=== PATIENT | male | born 1965 | race Caucasian/White ===

== ENCOUNTER 2024-05-18 09:13 | Emergency (ER) | payer BC, MEDICAID ==
[2024-05-18] MEDS ORDERED: Sodium Chloride 0.9% 10 ML Syringe FLUSH PRN (09:26)
[2024-05-18] MEDS: Nitroglycerin 0.4 MG Tab.SL SL ONE (09:35)
[2024-05-18 09:45] LABS: BASOPHILS PERCENT AUTO 0.2 % (0.0-1.0); HEMATOCRIT 44.2 % (42.0-52.0); HEMOGLOBIN 14.8 gm/dl (14.0-18.0); IMMATURE GRAN ABSOLUTE AUTO 0.03 K/mm3 (0.00-0.05); IMMATURE GRAN PERCENT AUTO 0.3 % (0.0-0.4); LYMPHOCYTES ABSOLUTE AUTO 1.1 K/mm3 (1.0-4.8); LYMPHOCYTES PERCENT AUTO 10.9 % (24.0-44.0); MEAN CORPUSCULAR HEMOGLOBIN 30.1 pg (28.0-32.0); MEAN CORPUSCULAR HGB CONC 33.5 g/dl (32.0-36.0); MONOCYTES ABSOLUTE AUTO 1.3 K/mm3 (0.0-0.8); MONOCYTES PERCENT AUTO 13.4 % (0.0-8.0); NEUTROPHILS ABSOLUTE AUTO 7.4 K/mm3 (1.8-7.7); NEUTROPHILS PERCENT AUTO 75.2 % (41.0-71.0); PLATELET COUNT,PLT 206 K/mm3 (150-400); RED BLOOD CELL COUNT 4.91 M/mm3 (4.52-5.90); WHITE BLOOD CELL COUNT,WBC 9.87 K/mm3 (3.9-11.3)
[2024-05-18] MEDS: Pantoprazole 40 MG Vial IVPUSH ONE (09:51)
[2024-05-18 10:04] LABS: A/G RATIO 0.9 (1-2); ALBUMIN 3.2 g/dl (3.4-5.0); ANION GAP 14.2 (5-15); BILIRUBIN TOTAL 0.4 mg/dL (0.2-1.0); CALCIUM 8.5 mg/dL (8.5-10.1); EST CRCL DRUG DOSING (CG) 78.43 mL/min; MAGNESIUM 1.6 mg/dL (1.8-2.4); POTASSIUM,K 4.2 mEq/L (3.5-5.1); PROTEIN TOTAL,TP 6.9 g/dl (6.4-8.2)
[2024-05-18] MEDS ORDERED: Sodium Chloride 0.9% 100 ML IV SCH (10:30)
[2024-05-18] MEDS: Iopamidol 755 Mg/ML 100 ML Bottle IVPUSH ONE (10:41)
[2024-05-18] MEDS: HYDROmorphone 0.5 MG/0.5 ML Syringe IVPUSH ONE (11:13)
[2024-05-18] MEDS: Ketorolac 30 MG/ML SDV IVPUSH ONE (13:27)
== END 2024-05-18 14:08 | disposition home or self-care (01) ==
LOC: JD.ED 09:13
DX: R09.1 Pleurisy (principal); F17.210 Nicotine dependence, cigarettes, uncomplicated
CPT/HCPCS: 36415; 71045; 71275; 80053; 83735; 84484; 85025; 85379; 93005; 96374; 96375; 99285; A9270; J1885; J2470; Q9967

== ENCOUNTER 2024-08-16 19:22 | Emergency (ER) | payer MEDICAID ==
[2024-08-16 20:11] LABS: BASOPHILS ABSOLUTE AUTO 0.1 K/mm3 (0.0-0.2); BASOPHILS PERCENT AUTO 0.7 % (0.0-1.0); EOSINOPHILS ABSOLUTE AUTO 0.1 K/mm3 (0.0-0.4); EOSINOPHILS PERCENT AUTO 1.2 % (0.0-6.0); HEMATOCRIT 47.1 % (42.0-52.0); HEMOGLOBIN 14.9 gm/dl (14.0-18.0); IMMATURE GRAN ABSOLUTE AUTO 0.02 K/mm3 (0.00-0.05); IMMATURE GRAN PERCENT AUTO 0.2 % (0.0-0.4); LYMPHOCYTES ABSOLUTE AUTO 0.8 K/mm3 (1.0-4.8); LYMPHOCYTES PERCENT AUTO 8.8 % (24.0-44.0); MEAN CORPUSCULAR HEMOGLOBIN 29.6 pg (28.0-32.0); MEAN CORPUSCULAR HGB CONC 31.6 g/dl (32.0-36.0); MEAN CORPUSCULAR VOLUME 93.5 fl (83.0-99.0); MEAN PLATELET VOLUME 9.2 fl (9.4-12.4); MONOCYTES ABSOLUTE AUTO 0.9 K/mm3 (0.0-0.8); NEUTROPHILS ABSOLUTE AUTO 7.2 K/mm3 (1.8-7.7); NEUTROPHILS PERCENT AUTO 79.1 % (41.0-71.0); PLATELET COUNT,PLT 281 K/mm3 (150-400); RED BLOOD CELL COUNT 5.04 M/mm3 (4.52-5.90); WHITE BLOOD CELL COUNT,WBC 9.06 K/mm3 (3.9-11.3)
[2024-08-16] MEDS: Lidocaine 4% Patch TOP STA (20:15)
[2024-08-16] MEDS: Sodium Chloride 0.9% 1,000 ML IV ONE (20:15)
[2024-08-16 20:16] LABS: INR 1.03; PROTHROMBIN TIME 10.9 SECONDS (9.7-12.0)
[2024-08-16] MEDS: Ketorolac 30 MG/ML SDV IVPUSH ONE (20:16)
[2024-08-16] MEDS: Acetaminophen 325 MG Tab PO ONE (20:16)
[2024-08-16 20:29] LABS: ALBUMIN 3.8 g/dl (3.4-5.0); ANION GAP 10.3 (5-15); BILIRUBIN TOTAL 0.5 mg/dL (0.2-1.0); BUN/CREATININE RATIO 17.5 (14-18); CALCIUM 9.1 mg/dL (8.5-10.1); CREATININE 1.2 mg/dL (0.7-1.3); EST CRCL DRUG DOSING (CG) 69.35 mL/min; MAGNESIUM 1.9 mg/dL (1.8-2.4); PROTEIN TOTAL,TP 7.7 g/dl (6.4-8.2)
[2024-08-16 20:32] LABS: POTASSIUM,K 4.3 mEq/L (3.5-5.1)
== END 2024-08-16 22:10 | disposition home or self-care (01) ==
LOC: JD.ED 19:22
DX: R09.1 Pleurisy (principal); R07.82 Intercostal pain; R07.89 Other chest pain; J90 Pleural effusion, not elsewhere classified; F17.210 Nicotine dependence, cigarettes, uncomplicated; Z86.16 Personal history of COVID-19; Z79.899 Other long term (current) drug therapy
CPT/HCPCS: 36415; 71045; 80053; 80307; 82550; 83735; 83880; 84484; 85025; 85610; 93005; 96361; 96374; 99285; A9270; J1885; J7030

== ENCOUNTER 2025-01-01 23:06 | Emergency (ER) | payer MEDICAID ==
[2025-01-02] MEDS: Diphtheria,Pertussis(Acell),Tetanus Vaccine 0.5 ML Syringe IM ONE (00:32)
[2025-01-02] MEDS: cefTRIAXone 1 GM, Lidocaine 1% 2.1 ML IM ONE (00:34)
== END 2025-01-02 00:48 | disposition home or self-care (01) ==
LOC: JD.ED 23:06
DX: S61.052A Open bite of left thumb without damage to nail, initial encounter (principal); F17.200 Nicotine dependence, unspecified, uncomplicated; Z86.16 Personal history of COVID-19; Z23 Encounter for immunization; W54.0XXA Bitten by dog, initial encounter
CPT/HCPCS: 12001; 90471; 90715; 96372; 99283; J0696; J2003; 99282